=== PATIENT | male | born 1960 | race American Indian/Alaskan Native ===

== ENCOUNTER 2017-08-03 11:48 | Emergency (ER) | payer OTHER ==
[2017-08-03 12:11] VITALS: BP 105/77
[2017-08-03] MEDS ORDERED: TESSALON PERLES PO ONE (12:58)
[2017-08-03] MEDS ORDERED: MUCINEX ER PO ONE (12:58)
[2017-08-03] MEDS ORDERED: LIDOCAINE VISCOUS 2% PO ONE (12:58)
[2017-08-03] MEDS ORDERED: TYLENOL PO ONE (12:59)
--- NOTE | 2017-08-03 13:01 | Emergency Department Report ---
Chief Complaint: Upper Respiratory Infection Stated Complaint: FLU LIKE SYMPTOMS Time Seen by Provider: 08/03/17 12:58 - HPI History of Present Illness: Patient is a 57-year-old male who presents for evaluation of cough. The patient reports cough the past 2-3 days, associated congestion and throat pain. States that his throat pain is been severe for the past one day, stating in quality, exacerbated with swallowing. The patient denies fever, chest pain, dyspnea, hemoptysis, syncope, neck stiffness, dysphagia, stridor, drooling, difficulty tolerating secretions, dysphonia, hoarseness of voice, abdominal pain. - Exam Vital Signs: Vital Signs 08/03/17 12:03 Temperature 98.6 F Pulse Rate 107 H Respiratory 18 Rate Blood Pressure 105/77 O2 Sat by Pulse 95 Oximetry MSE screening note: Focused history and physical exam performed. Due to findings the following was ordered: ED Disposition for MSE Condition: Undetermined Referrals: [facility] [Other] - 3-5 Days
--- NOTE | 2017-08-03 13:08 | Emergency Department Report ---
- General Chief Complaint: Upper Respiratory Infection Stated Complaint: FLU LIKE SYMPTOMS Time Seen by Provider: 08/03/17 12:58 Source: patient Mode of arrival: Ambulatory Limitations: No Limitations - History of Present Illness Initial Comments: Patient is a 57-year-old male who presents for evaluation of cough. The patient reports cough the past 2-3 days, associated congestion and throat pain. States that his throat pain is been severe for the past one day, stating in quality, exacerbated with swallowing. The patient denies fever, chest pain, dyspnea, hemoptysis, syncope, neck stiffness, dysphagia, stridor, drooling, difficulty tolerating secretions, dysphonia, hoarseness of voice, abdominal pain. Took some amoxicillin. MD Complaint: fever (last night MAXIMUM TEMPERATURE 101), cough, sore throat -: days(s) (3) Associated Symptoms: fever, nasal congestion, sore throat. denies: chills, chest pain, shortness of breath, rash - Related Data Previous Rx's Medication Instructions Recorded Last Taken Type Benzonatate [Tessalon Perles] 100 mg PO Q8HR #15 capsule 08/03/17 Unknown Rx Allergies Allergy/AdvReac Type Severity Reaction Status Date / Time No Known Allergies Allergy Unverified 08/03/17 12:11 ED Review of Systems ROS: Stated complaint: FLU LIKE SYMPTOMS Other details as noted in HPI Constitutional: fever Eyes: denies: eye pain, eye discharge, vision change ENT: throat pain, congestion (nasal congestion) Respiratory: cough Cardiovascular: denies: chest pain, palpitations Endocrine: no symptoms reported Gastrointestinal: denies: abdominal pain, nausea, diarrhea Genitourinary: denies: urgency, dysuria Musculoskeletal: denies: back pain, joint swelling, arthralgia Skin: denies: rash, lesions Neurological: denies: headache, weakness, paresthesias Psychiatric: denies: anxiety, depression Hematological/Lymphatic: denies: easy bleeding, easy bruising ED Past Medical Hx - Past Medical History Hx Hypertension: Yes - Social History Smoking Status: Former Smoker - Medications Home Medications: Home Medications Medication Instructions Recorded Confirmed Last Taken Type Benzonatate [Tessalon Perles] 100 mg PO Q8HR #15 capsule 08/03/17 Unknown Rx ED Physical Exam - General Limitations: No Limitations General appearance: alert, in no apparent distress - Head Head exam: Present: atraumatic, normocephalic - Eye Eye exam: Present: normal appearance - ENT ENT exam: Present: mucous membranes moist - Neck Neck exam: Present: normal inspection - Respiratory Respiratory exam: Present: normal lung sounds bilaterally. Absent: respiratory distress - Cardiovascular Cardiovascular Exam: Present: regular rate, normal rhythm. Absent: systolic murmur, diastolic murmur, rubs, gallop - GI/Abdominal GI/Abdominal exam: Present: soft, normal bowel sounds - Rectal Rectal exam: Present: deferred - Extremities Exam Extremities exam: Present: normal inspection - Back Exam Back exam: Present: normal inspection - Neurological Exam Neurological exam: Present: alert, oriented X3 - Psychiatric Psychiatric exam: Present: normal affect, normal mood - Skin Skin exam: Present: warm, dry, intact, normal color. Absent: rash ED Course Vital Signs 08/03/17 12:03 Temperature 98.6 F Pulse Rate 107 H Respiratory 18 Rate Blood Pressure 105/77 O2 Sat by Pulse 95 Oximetry - Reevaluation(s) Reevaluation #1: 08/03/17 14:59 Patient reports he feels much better after having medication here in fast track. ED Medical Decision Making - Radiology Data Radiology results: report reviewed, image reviewed FINDINGS: Subtle right upper lobe opacities on the frontal view which are suggestive of abnormal vascular structures. The lungs are otherwise clear. No pulmonary consolidation. No pleural effusion. The heart and aorta are normal. Degenerative changes in the spine. IMPRESSION: Abnormal right upper lobe lung opacities.Recommend CT Angio Chest. Transcribed By: REF Dictated By: STEPHON LAGUNA MD Electronically Authenticated By: STEPHON LAGUNA MD Signed Date/Time: 08/03/17 7169 - Medical Decision Making Patient has been evaluated by this provider as well as Dr. Villalba. Chest x- ray was ordered. No pneumonia or infiltrates noted. There are some O pasty endovascular in the right upper lobe. Discussed the patient he needs to follow up with his primary care provider to have a CT angiogram performed. Patient verbalized understanding. Stress the patient that we will discharge him home on benzonatate 100 mg every 8 hours as needed for cough. He can take Tylenol or Motrin for pain. Critical care attestation.: If time is entered above; I have spent that time in minutes in the direct care of this critically ill patient, excluding procedure time. ED Disposition Clinical Impression: URI (upper respiratory infection) Qualifiers: URI type: unspecified URI Qualified Code(s): J06.9 - Acute upper respiratory infection, unspecified Disposition: DC- TO HOME OR SELFCARE Is pt being admited?: No Does the pt Need Aspirin: No Condition: Stable Instructions: Viral Syndrome (ED) Additional Instructions: Please take cough indication as prescribed. Please follow up with her primary care provider to discuss CT of the chest. Please take disc and reading to your primary care provider. Prescriptions: Benzonatate [Tessalon Perles] 100 mg PO Q8HR #15 capsule Referrals: [facility] [Other] - 3-5 Days [facility] [Provider Group] - 3-5 Days [facility] [Provider Group] - 3-5 Days [email or web address] [Provider Group] - 3-5 Days JOHN ANN MD [Staff Physician] - 3-5 Days Forms: Work/School Release Form(ED)
--- NOTE | 2017-08-03 13:46 | XRay Report ---
XRAY CHEST TWO VIEWS: 08/03/17 11:48:00 CLINICAL: Cough. COMPARISON: None FINDINGS: Subtle right upper lobe opacities on the frontal view which are suggestive of abnormal vascular structures. The lungs are otherwise clear. No pulmonary consolidation. No pleural effusion. The heart and aorta are normal. Degenerative changes in the spine. IMPRESSION: Abnormal right upper lobe lung opacities.Recommend CT Angio Chest.
== END 2017-08-03 15:02 | disposition home or self-care (01) ==
LOC: ED 11:48
DX: J06.9 Acute upper respiratory infection, unspecified (principal); Z87.891 Personal history of nicotine dependence
CPT/HCPCS: 71046; 99283